=== PATIENT | female | born 1980 | race Caucasian/White ===

== ENCOUNTER 2023-04-16 10:32 | Outpatient (AMB) | payer OTHER, SELFPAY ==
[2023-04-16 10:49] VITALS: BMI 31.8
--- NOTE | 2023-04-16 10:49 | A.OFFVIS_ITS ---
Intake Vital Signs 04/16/23 10:49 Height 5 ft 4 in Weight 185 lb BMI 31.8 Intake Visit Reasons: [employer] PATROL-Numbness in B/L Hands Intake Note: Marlene 42 yr old right hand dominant female, presents today for a new patient visit fir numbness and tingling of Bilateral hands. States her left hand has worsen in the last 3 months. Patient has tried braces at night times which helps a little. Currently her numbness comes and goes and are daily. No EMG done. Allergies No Known Allergies Allergy (Verified 04/16/23 10:50) HPI [employer] L[employer] PATROL-Numbness in B/L Hands HPI Details Marlene is a 42 year old right hand dominant woman who presents with complaints of bilateral hand numbness. 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 She complains of numbness in the thumb, index, and middle fingers bilaterally, L>R. She says she has some tingling in her small fingers as well. Her symptoms are intermittent, but daily, worse at night. She says her symptoms at night have improved somewhat since she began wearing her bilateral wrist splints. 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 Review of Systems Const All systems reviewed & are unremarkable except as noted in HPI and below Physical Exam Vital Signs: BMI result Body Mass Index 31.8 Const General: cooperative, healthy appearing and no acute distress Orientation/consciousness: patient oriented x3 HEENT Head: Yes normocephalic and Yes atraumatic Eyes EOM: EOMs intact bilaterally Resp Effort & Inspection: normal respiratory effort and able to speak in complete sentences Cardio Jugular venous distension: no JVD Skin General skin exam: turgor normal Rashes: no rashes Neuro General: patient oriented x3 Extrem Other: Evaluation of Bilateral Upper Extremity: The patient is alert, oriented, and in no acute distress Neuro: Not-normal sensation to the tips of all digits bilaterally, including the small fingers No thenar or intrinsic wasting Good APB muscle belly firing and good finger cross Vascular: Cap refill brisk ROM: She can make a fist and extend all her digits No locking or catching Skin: No lacerations or abrasions. General: No Ecchymosis. No Erythema or evidence of infection. Psych Appearance: grossly normal Affect: normal affect Attitude: cooperative Assessment & Plan Assessment & Plan (1) Bilateral hand numbness: Code(s): R20.0 - Anesthesia of skin Plan Assessment & Plan: 1. Bilateral hand numbness In the median nerve distribution, she is unsure if she has numbness in her small fingers Symptoms intermittent, but daily, worse at night I ordered a NCS to assess for peripheral nerve compression She will try to be mindful and decide whether not she actually has numbness in the small finger when she feels like her hand is numb. She will continue to wear her wrist splints at night She will follow up when completed for review Scribed for Kristin Lanza MD by Jessee Sterling, medical reviewer, on 04/16/23 at 11:10 AM, EST. Orders: Orders NE nerve conduction velocity Today R20.0 - Anesthesia of skin, R20.2 - Paresthesia of skin Coding Level of Care Code New Pt Level 3 (23632) Diagnoses Bilateral hand numbness R20.0
== END 2023-04-16 11:23 | disposition home or self-care (01) ==
PROVIDERS: Visit Provider Orthopaedic Surgery
DX: R20.0 Anesthesia of skin (principal)
CPT/HCPCS: 99203

== ENCOUNTER → 2023-04-16 10:32 | Outpatient (BNVA) | payer OTHER, SELFPAY | PROVIDERS: Visit Provider Orthopaedic Surgery ==

== ENCOUNTER 2023-04-18 13:17 | Outpatient (REF) | payer OTHER, SELFPAY ==
--- NOTE | 2023-04-18 13:26 | EMG_ITS ---
Chief complaint: Hand numbness Reason for referral: Evaluate for Carpal Tunnel Syndrome versus ulnar neuropathy Referred by: Dr. Lanza Procedure done: Bilateral upper extremities NCS/EMG Precautions and/or limitations: None The limb temperature was monitored continuously and remained between 32-36 degrees C during the performance of the NCS. Nerve Conduction Studies Anti Sensory Summary Table ?Stim Site NR Onset (ms) Norm Onset (ms) Peak (ms) Norm Peak (ms) O-P Amp (?V) Norm O-P Amp Site1 Site2 Delta-0 (ms) Dist (cm) Todd (m/s) Norm Todd (m/s) Left Median Anti Sensory (2nd Digit) Wrist ? 3.1 3.6 <3.6 45.5 >10 Wrist 2nd Digit 3.1 14.0 45 Right Median Anti Sensory (2nd Digit) Wrist ? 3.0 3.6 <3.6 43.5 >10 Wrist 2nd Digit 3.0 14.0 47 Left Ulnar Anti Sensory (5th Digit) Wrist ? 2.1 2.9 <3.7 39.1 >15.0 Wrist 5th Digit 2.1 14.0 67 Right Ulnar Anti Sensory (5th Digit) Wrist ? 2.2 2.8 <3.7 20.4 >15.0 Wrist 5th Digit 2.2 14.0 64 Motor Summary Table ?Stim Site NR Onset (ms) Norm Onset (ms) O-P Amp (mV) Norm O-P Amp iAmp (mV) Amp (1st) (%) Site1 Site2 Delta-0 (ms) Dist (cm) Todd (m/s) Norm Todd (m/s) Left Median Motor (Abd Poll Brev) Wrist ? 3.3 <3.9 10.9 >4.5 13.0 100.0 Elbow Wrist 3.4 19.0 56 >45 Elbow ? 6.7 11.2 13.2 102.8 Right Median Motor (Abd Poll Brev) Wrist ? 3.7 <3.9 13.5 >4.5 15.9 100.0 Elbow Wrist 3.4 19.0 56 >45 Elbow ? 7.1 13.2 15.5 97.8 Left Ulnar Motor (Abd Dig Minimi) Wrist ? 2.3 <3.0 6.8 >5 8.5 100.0 Axilla A Elbow 1.3 0.0 A Elbow ? 5.1 6.4 8.2 94.1 Axilla ? 6.4 6.4 8.2 94.1 Right Ulnar Motor (Abd Dig Minimi) Wrist ? 2.6 <3.0 8.7 >5 10.9 100.0 B Elbow Wrist 2.6 17.0 65 >45 B Elbow ? 5.2 8.7 11.0 100.0 A Elbow B Elbow 1.2 10.0 83 >45 A Elbow ? 6.4 8.5 10.8 97.7 Comparison Summary Table ?Stim Site NR Peak (ms) Norm Peak (ms) P-T Amp (?V) Site1 Site2 Delta-P (ms) Norm Delta (ms) Right Median/Radial Dig I Comparison (Digit 1 - 10cm) Median ? 3.4 <2.9 75.4 Median Radial 0.2 Radial ? 3.6 <2.8 15.0 EMG ?Side Muscle Nerve Root Ins Act Fibs Psw Amp Dur Poly Recrt Int Pat Comment Right 1stDorInt Ulnar C8-T1 Nml Nml Nml Nml Nml 0 Nml Complete Right FlexCarRad Median C6-7 Nml Nml Nml Nml Nml 0 Nml Complete Right Biceps Musculocut C5-6 Nml Nml Nml Nml Nml 0 Nml Complete Right Triceps Radial C6-7-8 Nml Nml Nml Nml Nml 0 Nml Complete Right Deltoid Axillary C5-6 Nml Nml Nml Nml Nml 0 Nml Complete Left 1stDorInt Ulnar C8-T1 Nml Nml Nml Nml Nml 0 Nml Complete Left FlexCarRad Median C6-7 Nml Nml Nml Nml Nml 0 Nml Complete Left Biceps Musculocut C5-6 Nml Nml Nml Nml Nml 0 Nml Complete Left Triceps Radial C6-7-8 Nml Nml Nml Nml Nml 0 Nml Complete Left Deltoid Axillary C5-6 Nml Nml Nml Nml Nml 0 Nml Complete FINDINGS: All motor and sensory nerves tested showed normal latencies, amplitudes and conduction velocities. Concentric needle EMG was performed in selected muscles of the bilateral upper extremities. Study did not reveal signs of electric abnormalities as shown in the table below. IMPRESSION: 1. This is a normal study. 2. There is no electrodiagnostic evidence for median neuropathy, ulnar neuropathy, brachial plexopathy, or cervical radiculopathy. Thank you for your kind referral. Jocelyne Walter MD, KANDI Board Certified, [place] [employer] and Rehabilitation (ABPMR) Board Certified, [place] Board of Electrodiagnostic Medicine (ABEM) CODIN 55900 x2 MTDD
== END 2023-04-18 13:18 | disposition home or self-care (01) ==
LOC: HO.NEURO 13:17
PROVIDERS: Visit Provider Orthopaedic Surgery
DX: R20.0 Anesthesia of skin (principal); R20.2 Paresthesia of skin
CPT/HCPCS: 95886; 95911

== ENCOUNTER → 2023-04-18 13:26 | Outpatient (BNV) | payer OTHER, SELFPAY | PROVIDERS: Visit Provider Physical Medicine & Rehabilitation | DX: R20.2 Paresthesia of skin (principal) | CPT/HCPCS: 95886; 95911 ==

== ENCOUNTER 2023-05-28 10:22 | Outpatient (AMB) | payer OTHER, SELFPAY ==
[2023-05-28 10:45] VITALS: BMI 31.8
--- NOTE | 2023-05-28 10:45 | A.OFFVIS_ITS ---
Intake Vital Signs 05/28/23 10:45 Height 5 ft 4 in Weight 185 lb BMI 31.8 Intake Visit Reasons: OV- hand pain/numbness Intake Note: Marlene 42 yr old female presents today for her EMG review. Allergies No Known Allergies Allergy (Verified 05/28/23 10:47) HPI OV- hand pain/numbness HPI Details Marlene is a 42 year old right hand dominant woman who presents for a NCS review concerning her bilateral hand numbness. 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 She says she has had to stop working with glass since her last appointment. She continues to complain of numbness in her fingers, bilaterally, L>R. She says the numbness in her ring & small fingers have worsened since her last appointment. She says her symptoms at night have improved somewhat since she began wearing her bilateral wrist splints, but she say she still wakes occasionally with numbness up to her elbows . She says since she began to work less with glass, her symptoms of numbness have improved somewhat, but she says her mental health is suffering without being able to perform this hobby that she loves. She is frustrated by being limited in her activities, and by her numbness, and is unsure what to do moving forward. 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 This is a normal study. 2. There is no electrodiagnostic evidence for median neuropathy, ulnar neuropathy, brachial plexopathy, or cervical radiculopathy. Jocelyne Walter MD, KANDI 04/18/23 Assessment & Plan Assessment & Plan (1) Bilateral hand numbness: Code(s): R20.0 - Anesthesia of skin Plan Assessment & Plan: 1. Bilateral hand numbness To the tips of all digits Symptoms intermittent, but daily, worse at night Negative NCS without evidence of peripheral nerve compression or radiculopathy The patient has noticed some, though incomplete improvement in her symptoms since she is decrease the amount of time she spends working with her stained glass. However, she feels this also affects her mental health negatively. No operative indications I discussed activity modification, and consider modifying her activities in such a way that she still gets to participate in the activities that she loves but perhaps in a different way or with less frequent see or intensity so that she does not have the symptoms of bother her. If she continues to have worsening numbness, we may consider a repeat NCS in the future. She can follow up prn Scribed for Kristin Lanza MD by Jessee Sterling, medical office technologist, on 04/16/23 at 11:10 AM, EST. Coding Level of Care Code Est Pt Level 3 (71701) Diagnoses Bilateral hand numbness R20.0
== END 2023-05-28 11:15 | disposition home or self-care (01) ==
PROVIDERS: Visit Provider Orthopaedic Surgery
DX: R20.0 Anesthesia of skin (principal)
CPT/HCPCS: 99213

== ENCOUNTER → 2023-05-28 10:22 | Outpatient (BNVA) | payer OTHER, SELFPAY | PROVIDERS: Visit Provider Orthopaedic Surgery ==